=== PATIENT | male | born 2000 | race Caucasian/White ===

== ENCOUNTER 2021-01-14 12:00 | Outpatient (RCR) | payer OTHER, SELFPAY | END 2021-01-27 10:43 | disposition home or self-care (01) | LOC: HO.PT 12:00 | PROVIDERS: PCP Nurse Practitioner Family; Visit Provider Dentist Orthodontics and Dentofacial Orthopedics | DX: M26.609 Unspecified temporomandibular joint disorder, unspecified side (principal) | CPT/HCPCS: 97110; 97161 ==